=== PATIENT | female | born 1990 | race Caucasian/White ===

== ENCOUNTER 2019-11-30 17:16 | Emergency (ER) | payer SELFPAY ==
[2019-11-30 17:28] VITALS: BP 120/76
--- NOTE | 2019-11-30 17:44 | ER Document Report ---
ED General - General Stated Complaint: NAUSEA/VOMITING Time Seen by Provider: 11/30/19 17:27 Mode of Arrival: Ambulatory Information source: Patient TRAVEL OUTSIDE OF THE [place] IN LAST 30 DAYS: No - HPI Patient complains to provider of: right flank pain, nausea, weakness Onset: Last week Onset/Duration: Gradual Quality of pain: Pressure - right flank Severity: Moderate Pain Level: 2 Associated symptoms: Nausea, Vomiting, Other - right flank pain Exacerbated by: Denies Relieved by: Denies Similar symptoms previously: No Recently seen / treated by doctor: No Notes: 29 year old female with a history of Hep C and IV Drug Abuse here in the ER for several weeks of nausea, vomiting, right flank pain, weakness. The patient says she last used Heroin 3 days ago. The patient has not gone through drug withdrawal before. The patient says she hasnt had her period in about 2 months. The patient denies known sick contacts or recent travel. - Related Data Allergies/Adverse Reactions: No Known Allergies Allergy (Unverified 11/30/19 17:28) Past Medical History - General Information source: Patient - Social History Smoking Status: Current Every Day Smoker Frequency of alcohol use: Occasional Drug Abuse: Heroin Family History: Reviewed & Not Pertinent Patient has suicidal ideation: No Patient has homicidal ideation: No GI Medical History: Reports: Hx Hepatitis - Hep C Review of Systems - Review of Systems Constitutional: Weakness, Weight loss EENT: No symptoms reported Cardiovascular: No symptoms reported Respiratory: No symptoms reported Gastrointestinal: Nausea, Vomiting Genitourinary: Frequency, Flank pain - right sided Female Genitourinary: No symptoms reported Musculoskeletal: No symptoms reported Skin: No symptoms reported Hematologic/Lymphatic: No symptoms reported Neurological/Psychological: No symptoms reported -: Yes All other systems reviewed and negative Physical Exam - Vital signs Vitals: Temp Pulse Resp BP Pulse Ox 98.7 F 108 H 18 120/76 100 11/30/19 17:27 11/30/19 17:27 11/30/19 17:27 11/30/19 17:27 11/30/19 17:27 - Notes Notes: GENERAL: Poorly groomed, well-nourished, anxious and tearful. HEAD: Atraumatic, normocephalic. EYES: Pupils equal round and reactive to light, extraocular movements intact, sclera anicteric, conjunctiva are normal. ENT: External ears normal, nares patent, oropharynx clear without exudates. Moist mucous membranes. NECK: Normal range of motion, supple without lymphadenopathy or JVD. LUNGS: Breath sounds clear to auscultation bilaterally and equal. No wheezes ra les or rhonchi. HEART: Regular rate and rhythm without murmurs, rubs or gallops. ABDOMEN: Soft, nontender, normoactive bowel sounds. No guarding, no rebound. No masses appreciated. EXTREMITIES: Normal range of motion, no pitting or edema. No clubbing or cyanosis. NEUROLOGICAL: Cranial nerves II through XII grossly intact. Normal speech, normal gait. PSYCH: Normal mood, normal affect. SKIN: Warm, Dry, normal turgor, no rashes or lesions noted. Course - Re-evaluation Re-evalutation: 11/30/19 19:00 The patient was found to be which is likely the cause of her nausea and mild flank pain. Her UA is not consistent with a UTI (seems contaminated but will send a urine culture). Patient tested positive for Cocaine, Opiates, THC. Patient told to stop using drugs, starting taking a vitamin and follow up with METAL BONDING PRESS OPERATOR. - Vital Signs Vital signs: Temp Pulse Resp BP Pulse Ox 98.7 F 108 H 18 120/76 100 11/30/19 17:29 11/30/19 17:27 11/30/19 17:27 11/30/19 17:27 11/30/19 17:27 - Laboratory Result Diagrams: 11/30/19 18:08 11/30/19 18:08 Laboratory results interpreted by me: 11/30/19 11/30/19 11/30/19 18:08 18:08 18:08 WBC 10.9 H Plt Count 584 H Sodium 135.9 L BUN 6 L Creatinine 0.49 L Glucose 73 L ALT 38 H Ur Leukocyte Esterase SMALL H Urine HCG, Qual POSITIVE H Discharge - Discharge Clinical Impression: Nausea Qualifiers: Weeks of gestation: unspecified Qualified Code(s): Z34.90 - Encounter for supervision of normal , unspecified, unspecified trimester Condition: Stable Disposition: HOME, SELF-CARE Instructions: ([facility]) Additional Instructions: You are . Start taking vitamins and follow up with an METAL BONDING PRESS OPERATOR Doctor as soon as possible. Stop using any drugs or alcohol as these can affect your . Referrals: NIRMAL NAIR MD [ACTIVE STAFF] - Follow up as needed TANNER CHUN MD [ACTIVE STAFF] - Follow up as needed
[2019-11-30 18:22] LABS: ABSOLUTE BASOPHILS # (AUTO) 0.1 10^3/uL (0.0-0.2); ABSOLUTE EOSINOPHILS # (AUTO) 0.1 10^3/uL (0.0-0.6); ABSOLUTE LYMPHOCYTES (AUTO) 2.8 10^3/uL (0.5-4.7); ABSOLUTE MONOCYTES (AUTO) 1.1 10^3/uL (0.1-1.4); ABSOLUTE NEUT (AUTO) 6.9 10^3/uL (1.7-8.2); BASOPHILS % (AUTO) 1.1 % (0-2); EOSINOPHILS % (AUTO) 0.5 % (0-6); HEMATOCRIT 41.6 % (36.0-47.0); HEMOGLOBIN 14.6 g/dL (12.0-15.5); LYMPHOCYTES % (AUTO) 25.5 % (13-45); MEAN CORPUSCULAR HEMOGLOBIN 30.6 pg (27.0-33.4); MEAN CORPUSCULAR HGB CONC 35.2 g/dL (32.0-36.0); MEAN CORPUSCULAR VOLUME 87 fl (80-97); MONOCYTES % (AUTO) 10.2 % (3-13); PLATELET COUNT 584 10^3/uL (150-450); RED BLOOD COUNT 4.79 10^6/uL (3.72-5.28); RED CELL DISTRIBUTION WIDTH 13.4 % (11.5-14.0); SEGMENTED NEUTROPHILS % (AUTO) 62.7 % (42-78); TOTAL CELLS COUNTED % (AUTO) 100 %; WHITE BLOOD COUNT 10.9 10^3/uL (4.0-10.5)
[2019-11-30 18:29] LABS: APPEARANCE,URINE SLIGHTLY-CLOUDY; BILIRUBIN,URINE NEGATIVE (NEGATIVE); COLOR,URINE YELLOW; GLUCOSE, URINE NEGATIVE (NEGATIVE); KETONES,URINE NEGATIVE (NEGATIVE); LEUKOCYTE ESTERASE,URINE SMALL (NEGATIVE); NITRITE,URINE NEGATIVE (NEGATIVE); PROTEIN,URINE NEGATIVE (NEGATIVE); URINE SPECIFIC GRAVITY 1.009; UROBILINOGEN,URINE NEGATIVE mg/dL (<2.0)
[2019-11-30 18:39] LABS: ALBUMIN 4.6 g/dL (3.5-5.0); ALKALINE PHOSPHATASE 84 U/L (38-126); ANION GAP 7 (5-19); ASPARTATE AMINO TRANSFERASE 30 U/L (14-36); BILIRUBIN,TOTAL 0.4 mg/dL (0.2-1.3); BLOOD UREA NITROGEN 6 mg/dL (7-20); CALCIUM 9.8 mg/dL (8.4-10.2); CARBON DIOXIDE 26 mmol/L (22-30); CHLORIDE 103 mmol/L (98-107); GLUCOSE 73 mg/dL (75-110); POTASSIUM 4.5 mmol/L (3.6-5.0); TOTAL PROTEIN 7.7 g/dL (6.3-8.2)
[2019-11-30 18:45] LABS: URINE AMPHETAMINES SCREEN NEGATIVE; URINE BARBITURATES SCREEN NEGATIVE; URINE BENZODIAZEPINES SCREEN NEGATIVE; URINE METHADONE SCREEN NEGATIVE; URINE PHENCYCLIDINE SCREEN NEGATIVE
[2019-11-30 18:49] LABS: URINE COCAINE SCREEN UNCONFIRMED POSITIVE; URINE MARIJUANA (THC) SCREEN UNCONFIRMED POSITIVE
== END 2019-11-30 19:17 | disposition home or self-care (01) ==
LOC: ER 17:16
DX: O99.320 Drug use complicating pregnancy, unspecified trimester (principal); F14.10 Cocaine abuse, uncomplicated; F12.10 Cannabis abuse, uncomplicated; F11.10 Opioid abuse, uncomplicated; O21.9 Vomiting of pregnancy, unspecified; O26.899 Other specified pregnancy related conditions, unspecified trimester; R10.9 Unspecified abdominal pain; R53.1 Weakness; Z3A.00 Weeks of gestation of pregnancy not specified
CPT/HCPCS: 36415; 80053; 80307; 81001; 81025; 83690; 84702; 85025; 87086; 99284

== ENCOUNTER 2019-12-12 04:40 | Emergency (ER) | payer SELFPAY ==
[2019-12-12] MEDS ORDERED: NORMAL SALINE 1000 ML 1,000 ML IV ONE (05:03)
--- NOTE | 2019-12-12 05:05 | ER Document Report ---
ED GI/ - General Mode of Arrival: Ambulatory Information source: Patient TRAVEL OUTSIDE OF THE [place] IN LAST 30 DAYS: No - HPI Patient complains to provider of: Pelvic pain, Vaginal bleeding. No: Vomiting Onset: This morning Timing/Duration: Gradual Quality of pain: Cramping Pain Level: 2 Context: Location: Pelvis Vaginal bleeding (Compared to normal period): Spotting Menstrual period history: Associated symptoms: denies: Fever, Loss of appetite, Nausea, Urinary hesitancy, Urinary frequency, Urinary retention, Urinary urgency, Vaginal discharge Exacerbated by: Denies Relieved by: Denies Similar symptoms previously: No Recently seen / treated by doctor: Yes <EVANGELINA LAI - Last Filed: 12/12/19 07:19> <YANICK SMITH - Last Filed: 12/12/19 12:25> <ISIDRO CR - Last Filed: 12/12/19 14:01> - General Chief Complaint: Vag Bleeding, +preg <12wks Stated Complaint: ABDOMINAL CRAMPING/VAGINAL BLEEDING Time Seen by Provider: 12/12/19 04:44 Primary Care Provider: [facility] [Provider Group] - Follow up as needed (Call them before 1130 for phone screening. Recommendation to call them first thing tomorrow (12/13/2019) morning.) [facility] [Outside] - Follow up as needed (Voluntary Inpatient Treatment for Substance Abuse to include detoxification. You can call or walk in.) [facility] [Outside] - Follow up as needed (Crisis, Talk Thearpy, LInkage to other supports and services) [facility] [Outside] - Follow up as needed (Crisis, Talk Thear[facility], LInkage to other supports and services) DESIREE ROE MD [COMMUNITY BASED STAFF] - Follow up as needed RAJANI LARKIN MD [ACTIVE STAFF] - Follow up as needed Notes: Patient presents 6 weeks G6, P3. Patient states that she has had cramping and spotting since about 330 this morning. Patient states that she did inject heroin less than 24 hours ago. Patient states she last smoked methamphetamine 2 days ago. Patient was seen here on 11/30/2019 and was positive for cocaine, opiates, and marijuana at that time as well. Patient states that she is wanting help for substance abuse. (EVANGELINA LAI) - Related Data Allergies/Adverse Reactions: No Known Allergies Allergy (Verified 12/12/19 04:51) Past Medical History - General Information source: Patient Last Menstrual Period: About 6 weeks - Social History Smoking Status: Current Every Day Smoker Chew tobacco use (# tins/day): No Drug Abuse: Cocaine, Heroin, Marijuana, Methamphetamine Occupation: None Family History: Reviewed & Not Pertinent Patient has homicidal ideation: No GI Medical History: Reports: Hx Hepatitis - Hep C Traumatic Medical History: Reports: Hx Traumatic Brain Injury Infectious Medical History: Reports: Hx Hepatitis - Hep C Past Surgical History: Reports: Hx Gynecologic Surgery - d&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 denies: Fever, Recent illness EENT: No symptoms reported Cardiovascular: No symptoms reported. denies: Chest pain Respiratory: No symptoms reported. denies: Cough Gastrointestinal: Abdominal pain. denies: Diarrhea, Nausea, Vomiting Genitourinary: No symptoms reported. denies: Dysuria Female Genitourinary: , Vaginal bleeding Musculoskeletal: No symptoms reported. denies: Back pain Skin: No symptoms reported Hematologic/Lymphatic: No symptoms reported Neurological/Psychological: No symptoms reported <EVANGELINA LAI - Last Filed: 12/12/19 07:19> Physical Exam - General General appearance: Appears well, Alert In distress: None - HEENT Head: Normocephalic, Atraumatic Eyes: Normal Conjunctiva: Normal Nasal: Normal Mouth/Lips: Normal Mucous membranes: Normal Neck: Normal, Supple - Respiratory Respiratory status: No respiratory distress Chest status: Nontender Breath sounds: Normal. No: Rales, Rhonchi, Stridor, Wheezing Chest palpation: Normal - Cardiovascular Rhythm: Tachycardia Heart sounds: S1 appreciated, S2 appreciated - Abdominal Inspection: Normal Distension: No distension Bowel sounds: Normal Tenderness: Tender - Lower pelvic Organomegaly: No organomegaly - Back Back: Normal, Nontender. No: CVA tenderness - Extremities General upper extremity: Nontender, Normal strength General lower extremity: Nontender, Normal strength - Neurological Neuro grossly intact: Yes Cognition: Normal [place] Coma Scale Eye Opening: Spontaneous [place] Coma Scale Verbal: Oriented [place] Coma Scale Motor: Obeys Commands [place]ita Coma Scale Total: 15 - Psychological Associated symptoms: Normal affect, Normal mood - Skin Skin Temperature: Warm Skin Moisture: Dry Skin Color: Normal <EVANGELINA LAI - Last Filed: 12/12/19 07:19> - Vital signs Vitals: Temp 98.3 F 12/12/19 04:40 Course - Laboratory Result Diagrams: 12/12/19 04:40 12/12/19 04:40 - Diagnostic Test Radiology reviewed: Reports reviewed <EVANGELINA LAI - Last Filed: 12/12/19 07:19> - Laboratory Result Diagrams: 12/12/19 04:40 12/12/19 04:40 <YANICK SMITH - Last Filed: 12/12/19 12:25> - Laboratory Result Diagrams: 12/12/19 04:40 12/12/19 04:40 <ISIDRO CR Dejuan - Last Filed: 12/12/19 14:01> - Re-evaluation Re-evalutation: 12/12/19 07:19 Patient with single intrauterine measuring 9 weeks 4 days. No ev idence for any subchorionic bleed or hemorrhage. Patient without any findings worrisome for UTI. Patient is requesting consultation with mental health staff to see about possible placement for detox given her status and her history of substance abuse. Patient advised that mental health team does not present till later in the afternoon. Patient is agreeable with waiting to speak with them. Patient otherwise medically clear for discharge or transfer pending mental health evaluation. (EVANGELINA LAI) Vital signs stable. Nurses notes reviewed. disposition received from NIGEL Bland at 8:15 AM. Vitals appear stable. Agree with assessment from prev ious RELIEF DRILLER. Reviewed pertinent laboratory diagnostics and clinical findings as well as both bedside examination. Patient states that she is waiting for mental health to consult with regarding detox from illicit substances while . CBC she has a very slight leukocytosis 11.9, no shift. CMP negative for renal hepatic dysfunction, no electrolyte disturbances. Patient is a quantitative positive for her hCG. Urinalysis unremarkable GC negative. Patient was requested to stay to speak with mental health due to patient verbally admitting to taking heroin and methamphetamine the last 2 days while she is 9 weeks 4 days . Patient is not complaining of any symptoms or pain at this time. Patient ate a late breakfast without any issues or complaints mental health at bedside to evaluate patient at 1300. They were able to obtain resources for patient to seek out further mental health care. Patient was agreeable to seeking out other resources to help manage her addictions as well as following up with HAND RUG BRAIDER for her . After performing a Medical Screening Examination, I estimate there is LOW risk for ACUTE APPENDICITIS, BOWEL OBSTRUCTION, ACUTE CHOLECYSTITIS, PERFORATED DIVERTICULITIS, INCARCERATED HERNIA, PANCREATITIS, PELVIC INFLAMMATORY DISEASE, PERFORATED ULCER, ECTOPIC , or TUBO-OVARIAN ABSCESS, thus I consider the discharge disposition reasonable. Also, there is no evidence or peritonitis, sepsis, or toxicity. I have reevaluated this patient multiple times and no significant life threatening changes are noted. The patient and I have discussed the diagnosis and risks, and we agree with discharging home with close follow-up with the understanding that symptoms and presentations can change. We also discussed returning to the Emergency Department immediately if new or worsening symptoms occur. We have discussed the symptoms which are most concerning (e.g., bloody stool, fever, changing or worsening pain, vomiting) that necessitate immediate return. 12/12/19 14:00 (ISIDRO CR) - Vital Signs Vital signs: Temp Pulse Resp BP Pulse Ox 98.6 F 112 H 22 H 112/66 100 12/12/19 11:10 12/12/19 11:10 12/12/19 11:10 12/12/19 11:10 12/12/19 11:10 - Laboratory Laboratory results interpreted by me: 12/12/19 12/12/19 12/12/19 04:40 04:40 06:50 WBC 11.7 H Plt Count 547 H Sodium 134.4 L Creatinine 0.47 L Beta HCG, Quant 10939.00 H Urine Ketones 20 H Urine Ascorbic Acid 40 H Labs- All tests 24 hr 12/12/19 12/12/19 12/12/19 04:40 04:40 04:40 WBC 11.7 H RBC 4.25 Hgb 12.9 Hct 36.9 MCV 87 MCH 30.4 MCHC 35.0 RDW 13.9 Plt Count 547 H Lymph % (Auto) 21.8 [place] % (Auto) 12.2 Eos % (Auto) 0.4 Baso % (Auto) 0.4 Absolute Neuts (auto) 7.6 Absolute Lymphs (auto) 2.5 Absolute Monos (auto) 1.4 Absolute Eos (auto) 0.0 Absolute Basos (auto) 0.0 Seg Neutrophils % 65.2 Sodium 134.4 L Potassium 4.5 Chloride 103 Carbon Dioxide 24 Anion Gap 7 BUN 12 Creatinine 0.47 L Est GFR ( Amer) > 60 Est GFR (MDRD) Non-Af > 60 Glucose 94 Calcium 9.8 Beta HCG, Quant 23278.00 H Total Beta HCG POSITIVE Urine Color Urine Appearance Urine pH Ur Specific Center Urine Protein Urine Glucose (UA) Urine Ketones Urine Blood Urine Nitrite Urine Bilirubin Urine Urobilinogen Ur Leukocyte Esterase Urine WBC (Auto) Urine RBC (Auto) U Hyaline Cast (Auto) Squamous Epi Cells Auto Urine Mucus (Auto) Urine Ascorbic Acid Chlamydia DNA (PCR) N.gonorrhoeae DNA (PCR) Blood Type O POSITIVE Rhogam Indicated RHOGAM NOT INDICATED 12/12/19 12/12/19 05:00 06:50 WBC RBC Hgb Hct MCV MCH MCHC RDW Plt Count Lymph % (Auto) [place] % (Auto) Eos % (Auto) Baso % (Auto) Absolute Neuts (auto) Absolute Lymphs (auto) Absolute Monos (auto) Absolute Eos (auto) Absolute Basos (auto) Seg Neutrophils % Sodium Potassium Chloride Carbon Dioxide Anion Gap BUN Creatinine Est GFR ( Amer) Est GFR (MDRD) Non-Af Glucose Calcium Beta HCG, Quant Total Beta HCG Urine Color YELLOW Urine Appearance SLIGHTLY-CLOUDY Urine pH 6.0 Ur Specific Center 1.017 Urine Protein NEGATIVE Urine Glucose (UA) NEGATIVE Urine Ketones 20 H Urine Blood NEGATIVE Urine Nitrite NEGATIVE Urine Bilirubin NEGATIVE Urine Urobilinogen NEGATIVE Ur Leukocyte Esterase NEGATIVE Urine WBC (Auto) 1 Urine RBC (Auto) 2 U Hyaline Cast (Auto) 1 Squamous Epi Cells Auto 1 Urine Mucus (Auto) RARE Urine Ascorbic Acid 40 H Chlamydia DNA (PCR) NOT DETECTED N.gonorrhoeae DNA (PCR) NOT DETECTED Blood Type Rhogam Indicated (EVANGELINA LAI) Discharge <EVANGELINA LAI - Last Filed: 12/12/19 07:19> <YANICK SMITH - Last Filed: 12/12/19 12:25> <ISIDRO CR - Last Filed: 12/12/19 14:01> - Discharge Clinical Impression: Intrauterine , Vaginal bleeding during , Substance abuse, Desire for detoxification, Heroin use, Methamphetamine use Condition: Stable Disposition: HOME, SELF-CARE Additional Instructions: You are . care is best started as early in as possible. If you're unsure about continuing this , you should discuss this with your physician or with talent management specialist at [facility]. You should take only medications approved by your physician. Acetaminophen can safely be taken for minor pains. As a rule, medication for chronic conditions such as asthma or seizures can safely be continued. You should discuss with the physician every medicine you take. Any regular exercise program can be continued. Talk to your physician, however, before engaging in competitive or demanding sports. Alcohol, smoking, and "street drugs" are dangerous to your baby. Cocaine is especially dangerous. Don't use any illicit drugs! You have been evaluated by both medical and behavioral health teams for and desire for detoxification. You have been deemed appropriate for discharge. While in the emergency department you received the following services/or had access to: Medical screening and assessment, nursing services, dietary services, pharmacological services, one-on-one counseling and/or psychotherapy, environmental services, and continuous observation by a patient health safety engineer. You are recommended to go to the [facility] for voluntary detoxification and have been provided contact information. You declined direct linkage. You have been provided your lab work and EKG from this visit in the event you choose to go to voluntary detoxification as recommended. You have also been provided the outpatient mental health resource sheet which highlighted both mobile crisis numbers for crisis/talk therapy/linkage to other services and supports, as well as [facility] contact information since you identified you wish to be in a Subutex or Suboxone Program. Spoke to Dian from [facility]. She stated you need to call before 1130 (should do so first thing tomorrow 12/13/2019 morning), they will conduct a brief phone screening over the phone to ensure you meet criteria for their program, then you will be scheduled an appointment where you will see a counselor/complete initial paperwork/provide urine for drug screen and from there you will be scheduled an appointment with the doctor who is available every Monday. You will also need some form of identification so they can verify who you are. NARCOTIC / OPIOD ABUSE: Narcotics and opiods are pain-relieving drugs that are often abused. They are addicting. Narcotics cause euphoria, but it often takes increasing amounts to "feel good" and avoid withdrawal symptoms. Overdose of narcotics causes small pupils, coma, and decreased breathing. It's a common cause of . Purity of street narcotics is unpredictable. Injection of narcotics is risky for abscesses, endocarditis (heart infection), pneumonia, and AIDS. Withdrawal from narcotics causes goose bumps, watery mouth, sweating, nasal congestion, muscle aches, abdominal cramps, vomiting, and diarrhea. There's often restlessness and confusion. Treatment programs are available, but you must make the decision to quit. Medication (such as clonidine) can be prescribed to control the symptoms of withdrawal. AMPHETAMINE / METHAMPHETAMINE ABUSE: Amphetamines are addicting stimulants. Amphetamines overstimulate the nervous system and give a false feeling of power and mastery. These drugs may be obtained as prescription pills for weight loss, narcolepsy, or attention-deficit disorder. More often they're bought as an illegal street drug, methamphetamine (crank, crystal, speed). Using amphetamines repeatedly can lead to serious medical problems in cluding malnutrition, severe depression, and paranoia. It can take increasing amounts to feel good. Eventually, there will be a "burn out." When you go off amphetamines there is a period of depression that may last for weeks or even months. High doses of amphetamines can cause seizures, confusion, hallucinations, delusions, high blood pressure, muscle damage, heart damage, or sudden . Ma ny times these deadly complications occur even with "normal" doses. Injection of amphetamines is risky for developing abscesses, endocarditis (heart infection), pneumonia, and AIDS. Withdrawal from amphetamines often causes anxiety, depression, and drug cravings. Some users become paranoid and psychotic. There may be cramps, nausea, and vomiting. Many treatment programs are available, but you must make the decision to quit. Medication can be prescribed to control the symptoms of amphetamine toxicity (beta blockers or benzodiazepines). Withdrawal symptoms may require tranquilizers. FOLLOW-UP CARE: You are recommended to go to [facility] for voluntary inpatient detoxification. You declined direct linkage but have been provided contact information and your labs/EKG from this visit if you change your mind. At the very least you should call [facility] before 1130 tomorrow (12/13/2019) morning to ensure you meet their program criteria and initiate services. If you experience worsening or a significant change in your symptoms notify your physician immediately, return to the Emergency Department at any time for re-evaluation or utilize mobile crisis. Referrals: DESIREE ROE MD [COMMUNITY BASED STAFF] - Follow up as needed RAJANI LARKIN MD [ACTIVE STAFF] - Follow up as needed [facility] [Outside] - Follow up as needed (Voluntary Inpatient Treatment for Substance Abuse to include detoxification. You can call or walk in.) [facility] [Provider Group] - Follow up as needed (Call them before 1130 for phone screening. Recommendation to call them first thing tomorrow (12/13/2019) morning.) [facility] [Outside] - Follow up as needed (Crisis, Talk Thearpy, LInkage to other supports and services) [facility] [Outside] - Follow up as needed (Crisis, Talk Thearpy, LInkage to other supports and services)
[2019-12-12 05:23] LABS: ABSOLUTE LYMPHOCYTES (AUTO) 2.5 10^3/uL (0.5-4.7); ABSOLUTE MONOCYTES (AUTO) 1.4 10^3/uL (0.1-1.4); ABSOLUTE NEUT (AUTO) 7.6 10^3/uL (1.7-8.2); BASOPHILS % (AUTO) 0.4 % (0-2); EOSINOPHILS % (AUTO) 0.4 % (0-6); HEMATOCRIT 36.9 % (36.0-47.0); HEMOGLOBIN 12.9 g/dL (12.0-15.5); LYMPHOCYTES % (AUTO) 21.8 % (13-45); MEAN CORPUSCULAR HEMOGLOBIN 30.4 pg (27.0-33.4); MEAN CORPUSCULAR VOLUME 87 fl (80-97); MONOCYTES % (AUTO) 12.2 % (3-13); PLATELET COUNT 547 10^3/uL (150-450); RED BLOOD COUNT 4.25 10^6/uL (3.72-5.28); RED CELL DISTRIBUTION WIDTH 13.9 % (11.5-14.0); SEGMENTED NEUTROPHILS % (AUTO) 65.2 % (42-78); TOTAL CELLS COUNTED % (AUTO) 100 %; WHITE BLOOD COUNT 11.7 10^3/uL (4.0-10.5)
[2019-12-12 05:28] LABS: ANION GAP 7 (5-19); BLOOD UREA NITROGEN 12 mg/dL (7-20); CALCIUM 9.8 mg/dL (8.4-10.2); CARBON DIOXIDE 24 mmol/L (22-30); CHLORIDE 103 mmol/L (98-107); GLUCOSE 94 mg/dL (75-110); POTASSIUM 4.5 mmol/L (3.6-5.0)
--- NOTE | 2019-12-12 06:45 | RADIOLOGY REPORT (SQ) ---
EXAM DESCRIPTION: [facility]: US TRANSVAGINAL CLINICAL HISTORY: 29 years Female; pelvic pain, vag bleeding; beta-hCG 79,676 TECHNIQUE: Endovaginal pelvic ultrasound was performed. COMPARISON: None. FINDINGS: Uterus: 10.5 x 7.5 x 6.4 cm. Single intrauterine gestational sac is identified. Single pole, CRL 2.76 cm, 9 weeks 4 days heart rate 162 BPM Yolk sac is identified. There is a trace amount of subchorionic fluid, typically and incidental finding at this stage of . No focal hematoma. Cervix 3.4 cm long, closed Right ovary: 2.5 x 2.2 x 1.9 cm. Normal vascular flow on Doppler. Left ovary: 3.4 x 2 x 2.6 cm. Normal vascular flow on Doppler. No free fluid. No adnexal masses. IMPRESSION: 1. Single viable IUP, EGA 9 weeks 4 days, EDC 07/12/2020
[2019-12-12 06:55] LABS: CHLAM PCR NOT DETECTED (NOT DETECT)
[2019-12-12 07:10] LABS: APPEARANCE,URINE SLIGHTLY-CLOUDY; BILIRUBIN,URINE NEGATIVE (NEGATIVE); COLOR,URINE YELLOW; GLUCOSE, URINE NEGATIVE (NEGATIVE); KETONES,URINE 20 mg/dL (NEGATIVE); LEUKOCYTE ESTERASE,URINE NEGATIVE (NEGATIVE); NITRITE,URINE NEGATIVE (NEGATIVE); PROTEIN,URINE NEGATIVE (NEGATIVE); URINE SPECIFIC GRAVITY 1.017; UROBILINOGEN,URINE NEGATIVE mg/dL (<2.0)
--- NOTE | 2019-12-12 11:50 | EKG REPORT ---
SEVERITY:- BORDERLINE ECG - SINUS RHYTHM PROMINENT P WAVES, NONDIAGNOSTIC : Confirmed by: Blu Younger MD 12-Dec-2019 11:50:12
[2019-12-12 13:48] LABS: URINE BARBITURATES SCREEN NEGATIVE; URINE BENZODIAZEPINES SCREEN NEGATIVE; URINE COCAINE SCREEN NEGATIVE; URINE MARIJUANA (THC) SCREEN NEGATIVE; URINE METHADONE SCREEN NEGATIVE; URINE PHENCYCLIDINE SCREEN NEGATIVE
[2019-12-12 13:58] VITALS: BP 114/76
--- NOTE | 2019-12-13 08:15 | PSYCHOLOGICAL NOTE ---
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 She reported testing positive on a test a couple weeks ago. She admitted to using heroin and methamphetamine yesterday. UDS was positive for both substances. Patient identified "I need to be on Subutex or something, I did this with my other 3 children and they weren't born addicted, I cannot go to a detox facility that won't provide Subutex." She was educated that voluntary inpatient detox is for withdrawal, they do not provide Subutex, and Subutex would be something done on a outpatient level. She was not committed to going to detox because no access to Subutex. She stated she is from [place] and they do things different there. She acknowledged she does not have an ID. She reported her [facility] . She stated he connected her to [facility] and they have provided a voucher to obtain duplicate ID from [place] so she can then request a certificate. She stated she has [place] insurance and they are also working on transferring that to [place]. She stated she stayed at the local homeless [facility]pc and they made a copy of ID so maybe she could get a copy from them. Patient presented with psychomotor agitation (standing, walking around room) and mood lability (tearful, anxious) likely from withdrawal. Patient was alert and oriented to self, person, place, time and situation. Mood was labile (tearful, anxious) with congruent affect. Patient did not appear to be responding to internal stimuli as evidenced by fair eye contact and answering questions appropriately when addressed. Thought processes were linear. Conversational speech was quick in rate yet audible and understandable. She was also able to carry on dialogue conversation. Intellectual abilities are estima evelina to be average. Insight, judgment and impulse control were fair as evidenced by seeking help with substance use since she is . From [id number] spoke to Dian from [facility]. She identified patient would need identification of some sort. She stated patient needs to call them by [phone] to do brief phone screening over the phone to determine if she meets criteria for their program, then an appointment would be scheduled where she would see a counselor/complete initial paperwork/provide urine for drug screen and then she would be scheduled to see the doctor who is a vailable every Monday. Diagnosis: Withdrawal Polysubstance Use Opioid Methamphetamine Impression/Plan: Patient is cleared from acute psychiatric services. She denied SI/HI and no observed psychosis. She presented for desire for detox since she tested positive on a test a couple weeks ago. Specifically patient wanted Subutex treatment. Recommended she go to voluntary inpatient detox and offered linkage to [facility]. Patient declined this linkage 2-3 times. Provided the outpatient mental health resource sheet which highlighted both [facility]CM numbers for crisis/talk therapy/linkage to other services and supports, contact information for [facility] and how to go about getting connected, and documented contact information for [facility]. Again informed patient recommendation is for voluntary inpatient detox, she declined direct linkage 2-3 times (she was provided her lab work in a yellow envelope in case she changed her mind about going to Voluntary inpatient detox), and she said she was going to call [facility] first thing tomorrow (12/13/2019) morning. Instructed patient at the very least to yes contact [facility] first thing in the morning. Consulted with Dr. Juan regarding the management and care of patient. ED Physician in agreement with recommendations.
== END 2019-12-12 14:01 | disposition home or self-care (01) ==
LOC: ER 04:40
DX: O20.9 Hemorrhage in early pregnancy, unspecified (principal); R10.2 Pelvic and perineal pain; O99.321 Drug use complicating pregnancy, first trimester; F11.10 Opioid abuse, uncomplicated; F15.10 Other stimulant abuse, uncomplicated; O99.331 Smoking (tobacco) complicating pregnancy, first trimester; Z3A.01 Less than 8 weeks gestation of pregnancy
CPT/HCPCS: 93005; 99285; 96360; 96361; 86900; 86901; 36415; 84702; 85025; 80048; 81001; 80307; 87491; 87591; 76817; 93010; J7030